=== PATIENT | male | born 1995 | race Caucasian/White ===

== ENCOUNTER → 2017-03-10 | Outpatient (CLI) | payer OTHER ==
[~2017-03-10] VITALS: Ht 185.4 cm; Wt 79.4 kg
[~2017-03-10] MED LIST: ZOLOFT100 MG PO; ZOLOFT25 MG PO
== END | disposition home or self-care (01) ==
LOC: AMB 11:29
DX: K31.89 Other diseases of stomach and duodenum (principal); K22.10 Ulcer of esophagus without bleeding; K29.70 Gastritis, unspecified, without bleeding; R63.0 Anorexia; R11.0 Nausea; R63.4 Abnormal weight loss; F17.200 Nicotine dependence, unspecified, uncomplicated
CPT/HCPCS: 88305; 88342 TC; J2250; J2405; J3010